=== PATIENT | male | born 1975 | race Caucasian/White ===

== ENCOUNTER 2017-10-04 15:04 | Emergency (ER) | payer OTHER ==
[~2017-10-04] VITALS: Ht 182.9 cm; Wt 80.1 kg
[~2017-10-04 15:04] MED LIST: PRT/20; RANI75TA7; [UNRECOGNIZED DRUG - OTHER]
[2017-10-04 15:06] VITALS: Ht 182.9 cm; Wt 80.1 kg
[2017-10-04] MEDS ORDERED: SODIUM CHLORIDE 0.9% 1000ML 1,000 ML IV STA (15:26)
[2017-10-04] MEDS ORDERED: KETOROLAC TROMETHAMINE 30 MG/ML VIAL IV STA ×2 (15:26→17:58)
[2017-10-04] MEDS ORDERED: CLINDAMYCIN IV 300 MG in DEXTROSE 5% ADD-VANTAGE 50ML 50 ML IV STA (15:36)
[2017-10-04 15:41] LABS: BASO % 0.2 %; BASO ABS # 0.02 K/uL (0-0.2); EOS % 1.3 %; EOS ABS # 0.11 K/uL (0-0.5); HEMATOCRIT 44.9 % (42-52); HEMOGLOBIN 15.9 g/dL (14.0-18.0); IG# 0.02 K/uL (0.00-0.02); LYMPH % 11.5 %; LYMPH ABS # 1.01 K/uL (1.2-3.4); MEAN CELL VOLUME 79.8 fL (80-100); MEAN CORPUSCULAR HEMOGLOBIN 28.2 pg (25-34); MEAN CORPUSCULAR HGB CONC 35.4 g/dl (32-36); MEAN PLATELET VOLUME 10.3 fL (7.4-10.4); MONO % 11.3 %; MONO ABS # 0.99 K/uL (0.11-0.59); NEUT % 75.5 %; NEUT ABS # 6.62 K/uL (1.4-6.5); PLATELET COUNT 180 K/uL (130-400); RED CELL DISTRIBUTION WIDTH CV 13.3 % (11.5-14.5); RED CELL DISTRIBUTION WIDTH SD 38.3 fL (36.4-46.3); WHITE BLOOD COUNT 8.77 K/uL (4.8-10.8)
[2017-10-04] MEDS ORDERED: OPTIRAY 320 IV PRN (15:45)
[2017-10-04] MEDS ORDERED: CLINDAMYCIN 600 MG/54 ML D5W IV ONE (15:45)
[2017-10-04 15:49] LABS: CALCIUM 9.1 mg/dl (8.5-10.1); CREATININE 1.26 mg/dl (0.60-1.40); POTASSIUM 3.2 mmol/L (3.5-5.1)
[2017-10-04] MEDS ORDERED: PENI-82 PO (16:00)
[2017-10-04] MEDS ORDERED: ACET-749 PO (16:00)
[2017-10-04] MEDS ORDERED: RANI300T2 PO (16:00)
[2017-10-04] MEDS ORDERED: NAPR1TAB9 PO (16:00)
--- NOTE | 2017-10-04 16:56 | DIAGNOSTIC IMAGING REPORT ---
SOFT TISSUE NECK WITH CLINICAL HISTORY: dental abscess expanding past mandible pain. Edema. TECHNIQUE: Transaxial acquisition. Multi axial reformatted images. Findings: Moderate mucosal thickening of the frontal and ethmoid sinuses. Right perimandibular soft tissue edematous change with associated considerable cellulitis. No evidence for drainable abscess or collection. Mild extension to the right central submandibular region. Several small reactive cervical nodes bilaterally. No evidence for airway compromise. Pulmonary apices are considered clear. Several right mandibular dental caries. No major bony destructive process. COMPARISON STUDY: None IMPRESSION: 1. Considerable right perimandibular cellulitis and associated soft tissue edematous change. 2. This extends to the right central submandibular tissues as well as the right para maxillary region. 2. No evidence for drainable abscess or collection.. 3. Several reactive cervical nodes bilaterally. 4. Several mandibular and to lesser extent right maxillary dental caries The above report was generated using voice recognition software. It may contain grammatical, syntax or spelling errors. Electronically signed by: Corona Lo M.D. 10/04/2017 4:55 PM Dictated Date/Time: 10/04/2017 4:49 PM
[2017-10-04] MEDS ORDERED: POTASSIUM CHLORIDE 10 MEQ TABCR PO STA (17:10)
[2017-10-04 17:14] VITALS: TEMP 36.4
[2017-10-04] MEDS ORDERED: DEXAMETHASONE INJ 8 MG in SYRINGE 0 ML IV SCH (17:30)
[2017-10-04] MEDS ORDERED: DXM/4 PO ×2 (17:43→18:16)
[2017-10-04] MEDS ORDERED: CLIN150C PO (17:43)
--- NOTE | 2017-10-04 17:56 | EMERGENCY ROOM VISIT NOTE ---
History First contact with patient: 15:18 Chief Complaint: DENTAL PAIN Stated Complaint: INFECTION OF MOUTH W/ SWELLING Nursing Triage Summary: Swelling to right side of mouth since Sunday History of Present Illness The patient is a 42 year old male who presents to the Emergency Room with complaints of dental pain and facial swelling. Patient states Sunday evening he was eating some chicken at [employer] and said having dictated dental pain in his lower jaw. He states yesterday the pain got really bad to call the dentist wrote him a prescription for penicillin and T3. He states the pain was not getting any better and this morning he woke up and noticed that his right side of the jaw was swollen so he went to see his dentist today. His dentist referred him to the emergency department for workup of possible abscess IV antibiotics and further evaluation. Patient reports no difficult breathing. No recent dental surgeries. No fevers. No chills. No nausea vomiting diarrhea. Review of Systems See HPI for pertinent positives and negatives. A total of ten systems were reviewed and were otherwise negative. Social History Smoking Status: Current Some Day Smoker Alcohol Use: occasionally Drug Use: none Current/Historical Medications Scheduled Clindamycin Hcl (Cleocin), 450 MG PO TID Dexamethasone (Decadron), 4 TAB PO DAILY Naproxen (Aleve), 440 MG PO PRN UD Ranitidine (Zantac), 300 MG PO BID Scheduled PRN Acetaminophen/Codeine (Tylenol W/Codeine #3), 1 TAB PO Q8 PRN for Pain Physical Exam Vital Signs Date Time Temp Pulse Resp B/P (MAP) Pulse Ox O2 Delivery O2 Flow Rate FiO2 10/04/17 17:14 36.4 76 16 145/95 98 Room Air 10/04/17 15:55 76 18 133/92 98 Room Air 10/04/17 15:06 36.7 65 16 154/86 100 Room Air Physical Exam GENERAL: Awake, alert, well-appearing, in no distress HENT: Normocephalic, Atraumatic. No trismus. Swelling over the right side of the lower face. No obvious dental abscess or obvious dental drainage from the tooth. No tongue elevation or submental swelling. No redness over the skin of the external face. EYES: Normal conjunctiva. Sclera non-icteric. PERRL bilaterally. EOMI bilaterally. NECK: Supple. No nuchal rigidity. FROM. No JVD. No C-spine tenderness. RESPIRATORY: Clear to auscultation. No wheezes rales rhonchi bilaterally CARDIAC: Regular rate, normal rhythm. Extremities warm and well perfused. Equal palpable radial pulses to the bilateral upper extremities. Equal palpable DP pulses to the bilateral lower extremities. ABDOMEN: Soft, non-distended. No tenderness to palpation. No rebound or guarding. No masses. Rovsig Negative. RECTAL: Deferred. MUSCULOSKELETAL: Chest examination reveals no tenderness. The back is symmetrical on inspection without obvious abnormality. There is no CVA tenderness to palpation. No joint edema. LOWER EXTREMITIES: Calves are equal size bilaterally and non-tender. No edema. No discoloration. NEURO: Normal sensorium. No sensory or motor deficits noted. No pronator drift. No facial droop. No dysarthria. SKIN: No rash or jaundice noted. Medical Decision & Procedures Laboratory Results 10/04/17 15:15 Red Blood Count 5.63, Mean Corpuscular Volume 79.8, Mean Corpuscular Hemoglobin 28.2, Mean Corpuscular Hemoglobin Concent 35.4, Mean Platelet Volume 10.3, Neutrophils (%) (Auto) 75.5, Lymphocytes (%) (Auto) 11.5, Monocytes (%) (Auto) 11.3, Eosinophils (%) (Auto) 1.3, Basophils (%) (Auto) 0.2, Neutrophils # (Auto ) 6.62, Lymphocytes # (Auto) 1.01, Monocytes # (Auto) 0.99, Eosinophils # (Auto ) 0.11, Basophils # (Auto) 0.02 10/04/17 15:15 Test 10/04/17 15:15 White Blood Count 8.77 K/uL (4.8-10.8) Red Blood Count 5.63 M/uL (4.7-6.1) Hemoglobin 15.9 g/dL (14.0-18.0) Hematocrit 44.9 % (42-52) Mean Corpuscular Volume 79.8 fL (80-100) Mean Corpuscular Hemoglobin 28.2 pg (25-34) Mean Corpuscular Hemoglobin Concent 35.4 g/dl (32-36) Platelet Count 180 K/uL (130-400) Mean Platelet Volume 10.3 fL (7.4-10.4) Neutrophils (%) (Auto) 75.5 % Lymphocytes (%) (Auto) 11.5 % Monocytes (%) (Auto) 11.3 % Eosinophils (%) (Auto) 1.3 % Basophils (%) (Auto) 0.2 % Neutrophils # (Auto) 6.62 K/uL (1.4-6.5) Lymphocytes # (Auto) 1.01 K/uL (1.2-3.4) Monocytes # (Auto) 0.99 K/uL (0.11-0.59) Eosinophils # (Auto) 0.11 K/uL (0-0.5) Basophils # (Auto) 0.02 K/uL (0-0.2) RDW Standard Deviation 38.3 fL (36.4-46.3) RDW Coefficient of Variation 13.3 % (11.5-14.5) Immature Granulocyte % (Auto) 0.2 % Immature Granulocyte # (Auto) 0.02 K/uL (0.00-0.02) Anion Gap 3.0 mmol/L (3-11) Est Creatinine Clear Calc Drug Dose 84.7 ml/min Estimated GFR () 81.6 Estimated GFR (Non- 70.4 BUN/Creatinine Ratio 6.4 (10-20) Calcium Level 9.1 mg/dl (8.5-10.1) Medications Administered Medications (Trade) Dose Ordered Sig/Stormy Route Start Time Stop Time Status Last Admin Dose Admin Ketorolac Tromethamine (Toradol Inj) 15 mg NOW STAT IV 10/04/17 15:26 10/04/17 15:29 DC 10/04/17 15:33 15 MG Sodium Chloride 1,000 ml @ 999 mls/hr Q1H1M STAT IV 10/04/17 15:26 10/04/17 16:26 DC 10/04/17 15:44 999 MLS/HR Clindamycin Phosphate 300 mg/ Dextrose 52 ml @ 104 mls/hr NOW STAT IV 10/04/17 15:36 10/04/17 16:05 DC 10/04/17 15:56 104 MLS/HR Medical Decision Vital signs stable. Labs including CBC were wnl and showed no elevated white blood cell count and other labs were within normal limits with the exception of low potassium. Potassium was replaced in the emergency department. CT showed no abscess. CT did show right perimandibular cellulitis and associated soft tissue edematous change.extends to the right central submandibular tissues as well as the right para maxillary region. No evidence for drainable abscess or collection. No evidence for airway compromise. Several mandibular and to lesser extent right maxillary dental caries. Patient was given clindamycin IV piggyback in the emergency department to better cover for anaerobes he was also given intravenous steroids to help decrease the swelling. No submental swelling or tongue elevation on physical exam. No difficulties tolerating by mouth in the emergency department. Absolutely no signs of Lucien angina as there is no tongue elevation, submental swelling, no stridor, no respiratory distress patient can tolerate secretions and tolerate by mouth without difficulty. Attempted to contact the patient's dentist at [phone], the office was closed in a voicemail message was left indicating that the patient was being switched to clindamycin from penicillin to better cover for anaerobes. The patient was also given to be discharged with oral Decadron to help decrease the swelling. [facility] onion tier was also notified who agreed that the patient 10 follow-up outpatient and she called the outpatient office tomorrow for follow-up. The plan was discussed with the patient as well as his and mother who are at bedside. The patient and family are agreeable to this plan. Strict return precautions were discussed with the patient and the patient and family both agreed to return to the emergency department immediately if he develops fever greater 100.4, increased swelling, difficulty breathing, swallowing, symptoms do not better. The family agrees to follow-up and called the PCP and dental office tomorrow. The patient agrees to stop taking the penicillin certainly in the clindamycin. All the patient's questions were answered and patient was discharged in stable condition. The chart was completed utilizing [employer] Speech voice recognition software. Grammatical errors, random word insertions, pronoun errors, and incomplete sentences are an occasional consequence of this system due to software limitations, ambient noise, and hardware issues. Any formal questions or concerns about the content, text, or information contained within the body of this dictation should be directly addressed to the physician for clarification. Impression Primary Impression: Facial cellulitis Additional Impression: Pain, dental Departure Information Prescriptions Dexamethasone (DECADRON) 4 Mg Tab 4 TAB PO DAILY for 7 Days, #7 TAB Prov: Negrito Kay M.D. 10/04/17 Clindamycin Hcl (CLEOCIN) 150 Mg Cap 450 MG PO TID for 10 Days, #90 CAP Prov: Negrito Kay M.D. 10/04/17 Referrals Gabriel Iniguez M.D. (PCP) Patient Instructions My [facility] Problem Qualifiers
[2017-10-04 18:20] VITALS: BP 159/89; PULSE 75; O2SAT 100
[2017-10-04] MEDS ORDERED: CLINDAMYCIN IV 300 MG in DEXTROSE 5% ADD-VANTAGE 50ML 50 ML IV SCH (22:00)
== END 2017-10-04 18:28 | disposition home or self-care (01) ==
LOC: C.EDB 15:05 → C.EDA 18:28
DX: L03.211 Cellulitis of face (principal); F17.210 Nicotine dependence, cigarettes, uncomplicated; Z79.899 Other long term (current) drug therapy